=== PATIENT | female | born 1985 | race Caucasian/White ===

== ENCOUNTER → 2017-01-13 10:52 | Outpatient (CLI) | payer MEDICAID | END | disposition home or self-care (01) | LOC: D.LDO 10:52 | DX: O16.3 Unspecified maternal hypertension, third trimester (principal); Z3A.32 32 weeks gestation of pregnancy ==

== ENCOUNTER → 2017-02-05 12:22 | Outpatient (CLI) | payer MEDICAID ==
[2017-02-05 12:46] LABS: BASOPHILS 0.1 % (0-2); EOSINOPHILS 0.6 % (0-7); HEMATOCRIT 37.6 % (36.0-48.0); HEMOGLOBIN 12.3 g/dL (12-16); IMMATURE GRANULOCYTES 0.2 % (0-5); MCHC 32.7 g/dL (31.0-37.0); MCV 85.6 fL (80.0-100.0); MEAN PLATELET VOLUME 10.6 fL (7.4-10.4); MONOCYTES 8.4 % (2-11); NEUTROPHILS 66.7 % (40-80); RBC 4.39 10x6/uL (4.00-5.40); RDW 14.5 % (11.5-14.5); WBC 9.4 10x3/uL (4.8-10.8)
[2017-02-05 12:47] LABS: PLATELET COUNT 199 10x3/uL (130-400)
[2017-02-05 13:03] LABS: ALBUMIN 2.5 g/dL (3.4-5.0); ALKALINE PHOSPHATASE 75 U/L (46-116); ALT (SGPT) 19 U/L (10-68); BILIRUBIN - TOTAL 0.18 mg/dL (0.2-1.3); CALC OSMOLALITY 270 mosm/kg (275-300); CARBON DIOXIDE 25.4 mmol/L (21.0-32.0); CHLORIDE - SERUM 103 mmol/L (98-107); CREATININE - SERUM 0.7 mg/dL (0.6-1.3); GLUCOSE 84 mg/dL (74-106); LDH 129 U/L (81-234); PROTEIN - SERUM 6.6 g/dL (6.4-8.2); SODIUM 137 mmol/L (136-145); UREA NITROGEN 7 mg/dL (7-18); URIC ACID 4.6 mg/dL (2.6-7.2); eGFR NON AFRICAN AMERICAN > 90 mL/min (90-120)
[2017-02-05 13:30] LABS: PROTEIN TRACE mg/dL (NEGATIVE)
[2017-02-06 16:33] LABS: PROTEIN - URINE 7.3 mg/dL (0.0-11.9)
== END | disposition home or self-care (01) ==
LOC: D.LDO 12:22
PROVIDERS: Obstetrics & Gynecology
DX: O10.913 Unspecified pre-existing hypertension complicating pregnancy, third trimester (principal); Z3A.35 35 weeks gestation of pregnancy

== ENCOUNTER → 2017-02-06 17:53 | Outpatient (CLI) | payer MEDICAID | END | disposition home or self-care (01) | LOC: D.LDO 17:53 | DX: O16.3 Unspecified maternal hypertension, third trimester (principal); Z3A.35 35 weeks gestation of pregnancy ==

== ENCOUNTER 2017-02-21 11:57 | Inpatient (IN) | payer MEDICAID ==
[~2017-02-21] VITALS: Ht 170.2 cm; Wt 167.3 kg
[2017-02-21] MEDS ORDERED: PRENATABS RX TA1 TAB PO (12:30)
[2017-02-21 12:49] VITALS: BP 135/86; Ht 170.2 cm; Wt 167.3 kg
[2017-02-21 14:07] LABS: APPEARANCE HAZY (CLEAR); BILIRUBIN NEGATIVE (NEGATIVE); COLOR YELLOW (YELLOW); GLUCOSE NEGATIVE (NEGATIVE); KETONE NEGATIVE (NEGATIVE); LEUKOCYTE ESTERASE NEGATIVE (NEGATIVE); NITRITE NEGATIVE (NEGATIVE); PROTEIN NEGATIVE (NEGATIVE); SPECIFIC GRAVITY 1.015 (1.005-1.020); UROBILINOGEN NORMAL (NORMAL)
[2017-02-21 14:07] LABS: BASOPHILS 0.2 % (0-2); EOSINOPHILS 0.8 % (0-7); HEMATOCRIT 39.4 % (36.0-48.0); HEMOGLOBIN 12.6 g/dL (12-16); IMMATURE GRANULOCYTES 0.2 % (0-5); MCH 27.6 pg (26.0-34.0); MCV 86.4 fL (80.0-100.0); MEAN PLATELET VOLUME 11.8 fL (7.4-10.4); MONOCYTES 6.7 % (2-11); NEUTROPHILS 70.1 % (40-80); PLATELET COUNT 164 10x3/uL (130-400); RBC 4.56 10x6/uL (4.00-5.40); RDW 15.1 % (11.5-14.5); WBC 9.4 10x3/uL (4.8-10.8)
[2017-02-21 14:24] LABS: ALBUMIN 2.4 g/dL (3.4-5.0); ALKALINE PHOSPHATASE 72 U/L (46-116); ALT (SGPT) 16 U/L (10-68); BILIRUBIN - TOTAL 0.24 mg/dL (0.2-1.3); CALC OSMOLALITY 271 mosm/kg (275-300); CALCIUM 8.9 mg/dL (8.5-10.1); CARBON DIOXIDE 23.1 mmol/L (21.0-32.0); CHLORIDE - SERUM 104 mmol/L (98-107); CREATININE - SERUM 0.6 mg/dL (0.6-1.3); POTASSIUM - SERUM 3.8 mmol/L (3.5-5.1); PROTEIN - SERUM 6.9 g/dL (6.4-8.2); SODIUM 138 mmol/L (136-145); UREA NITROGEN 8 mg/dL (7-18); eGFR NON AFRICAN AMERICAN > 90 mL/min (90-120)
[2017-02-21 14:29] LABS: GLUCOSE 68 mg/dL (74-106)
--- NOTE | 2017-02-22 03:38 | NUR ---
PT TRANSFERRED VIA W/C TRANSPORT TO ROOM 1273 FOR CONTINUED POST CARE FOLLOWING OF VIABLE MALE AT 0227. PT ORIENTED TO ROOM, CL, AND PHONE USE, BATHROOM AND USE OF CALL LIGHT IN BATHROOM. VERBALIZED UNDERSTANDING. BED IN LOW POSITION WITH UPPER SIDE RAILS RAISED X2. CL AND PHONE WITHIN REACH. FAMILY AT BEDSIDE. PT REPORT INTERMITTENT ABD CRAMPING, DENIES NEEDS AT THIS TIME. ICE WATER GIVEN.
[2017-02-22 03:48] VITALS: BP 132/74
--- NOTE | 2017-02-22 03:48 | NUR ---
PT BELONGINGS BROUGHT TO ROOM. VSS. PT DENIES NEED FOR PAIN INTERVENTIONS AT THIS TIME. PT IN HIGH FOWLERS POSITION EATING PIZZA THAT FAMILY HAD BROUGHT. WILL CONT TO MONITOR AND ASSIST PRN.
--- NOTE | 2017-02-22 05:10 | NUR ---
ROUNDS MADE. PT RESTING WITH EYES CLOSED. RESPIRATIONS REGULAR, NO S/S OF DISTRESS NOTED. FAMILY AT BEDSIDE RESTING WELL, DENIES NEEDS AT THIS TIME. BED IN LOW POSITION WITH UPPER SIDE RAILS RAISED X2. CL AND PHONE WITHIN PT REACH.
[2017-02-22 06:14] LABS: RAPID PLASMA REAGIN Non Reactive (Non Reactive)
--- NOTE | 2017-02-22 06:43 | NUR ---
SPOUSE TO NURSES STATION, STATES THAT PT IS C/O OF HEADACHE AND INCREASED CRAMPING. PT REQUESTS PAIN MEDICATION AT THIS TIME. STATES THAT SHE HAS HEADACHE AND IS HAVING INCREASED ABD CRAMPING. PAIN 5/10. NORCO AND MOTRIN GIVEN. DENIES ADDITIONAL NEEDS. WILL CONT TO MONITOR AND ASSIST PRN.
--- NOTE | 2017-02-22 07:43 | NUR ---
ASSUMED CARE OF THIS PP PATIENT. SITTING UP IN BED SMILING. VISITORS X 4 INFANT IN NURSERY. DENIES NEEDING ANYTHING EXCEPT BREAKFAST KITCHEN NOTIFIED. SAYS SHE JUST RECEIVED PAIN MEDICATION. SIDE RAILS UP X 2, CALL LIGHT IN REACH. WILL COMPLETE ASSESSMENT AFTER BREAKFAST.
[2017-02-22 07:57] VITALS: BP 122/58
--- NOTE | 2017-02-22 09:55 | NUR ---
REQUESTED PAIN MEDICATION FOR CRAMPING. INSTRUCTED NOT QUIT TIME FOR NORCO BUT WILL GIVE TO HER FIDEL. VERBALIZED UNDERSTANDING. ALSO NEEDED REFILL ON BETADINE YUKI-BOTTLE.
[2017-02-22 10:05] LABS: BASOPHILS 0.1 % (0-2); EOSINOPHILS 0.2 % (0-7); HEMATOCRIT 37.4 % (36.0-48.0); HEMOGLOBIN 11.9 g/dL (12-16); IMMATURE GRANULOCYTES 0.4 % (0-5); LYMPHOCYTES 16.2 % (15-50); MCH 27.7 pg (26.0-34.0); MCHC 31.8 g/dL (31.0-37.0); MEAN PLATELET VOLUME 11.1 fL (7.4-10.4); MONOCYTES 5.7 % (2-11); NEUTROPHILS 77.4 % (40-80); PLATELET COUNT 154 10x3/uL (130-400)
[2017-02-22 10:10] LABS: WBC 12.6 10x3/uL (4.8-10.8)
--- NOTE | 2017-02-22 10:31 | NUR ---
NORCO 5MG GIVEN PO FOR RELIEF OF 4/10 ABDOMINAL CRAMPING. ALSO REQUESTED SALINE LOCK BE REMOVED SECONDARY TO DISCOMFORT. INSTRUCTED THAT IT MAY HAVE TO BE RESTARTED IF INDICATED. VERBALIZED UNDERSTANDING. CBC RESULTS THIS AM WNL. SALINE LOCK DC'D WITH TIP INTACT. NO ADDITIONAL REQUESTS. VISITORS IN ROOM.
--- NOTE | 2017-02-22 11:25 | NUR ---
STANDING UP IN ROOM. SAYS HERE CRAMPING IS ABOUT THE SAME 4/10. EXPLAINED THAT CRAMPING HAS A PURPOSE AND THAT IT MAY NOT GET BETTER THAN 4/10. ENCOURAGED TO KEEP BLADDER EMPTIED VERBALIZED THAT SHE HAS BEEN VOIDING FREQUENTLY. VISITORS AND INFANT IN ROOM.
--- NOTE | 2017-02-22 12:04 | NUR ---
SITTING UP IN BED EATING LUNCH. NO REQUESTS.
--- NOTE | 2017-02-22 14:09 | NUR ---
SITTING UP IN BED. AND VISITORS IN ROOM. DENIES NEEDING ANYTHING. CALL LIGHT IN REACH.
--- NOTE | 2017-02-22 15:47 | NUR ---
SITTING UP IN BED HOLDING . FOB IN ROOM. DENIES NEEDING ANYTHING AT THIS TIME. CALL LIGHT IN REACH. TO CALL IF ANYTHING IS NEEDED.
[2017-02-22 15:52] VITALS: BP 120/68
--- NOTE | 2017-02-22 18:56 | NUR ---
SITTING UP IN ROCKER CHAIR BOTTLE FEEDING INFANT. COMPLETE LINEN CHANGE WAS DONE. ENCOURAGE PT TO SHOWER THIS PM TO PROMOTE REST. PLANS TO TAKE INFANT TO NURSERY AFTER BOTTLE FEEDING SAYING SHE WAS PLANNING TO TRY TO GET SOME SLEEP TONIGHT. TO CALL WHEN READY FOR TO GO TO NURSERY.
--- NOTE | 2017-02-22 19:14 | NUR ---
BEDSIDE REPORT REC'D FROM Sawyer ALSTNO RN. PT REC'D SITTING ON EDGE OF BED VISITING WITH FAMILY MEMBERS. PT REPORTS THAT IS IN NBN FOR ASSESSMENT AND WILL BE BROUGHT BACK TO ROOM SHORTLY. REQUESTS TO CONT TO VISIT WITH VISITORS AND FOR ASSESSMENT TO BE DONE AT A LATER TIME. DENIES NEEDS AT THIS TIME. INSTRUCTED TO USE CL FOR NEEDS, VERBALIZED UNDERSTANDING. BED IN LOW POSITION. CL AND PHONE WITHIN PT REACH. WILL CONT TO MONITOR AND ASSIST PRN.
--- NOTE | 2017-02-22 20:41 | NUR ---
PT CONTINUES TO VISIT WITH VISITORS. INFANT IN ROOM BEING HELD BY VISITOR. PT DENIES NEEDS, WILL CONT TO MONITOR AND ASSESS PRN.
--- NOTE | 2017-02-22 21:20 | NUR ---
ROUNDS MADE. PT BONDING WITH . DENIES NEEDS. INSTRUCTED TO NOTIFY RN VIA CL WHEN SHE WAS READY FOR ASSESSMENT TO BE COMPLETED. DENIES PAIN AT THIS TIME. REQUESTED NIPPLE FOR BOTTLE FROM NBN, GIVEN PER REQUEST. PT STATES THAT WHEN SHE FINISHES FEEDING INFANT SHE WOULD LIKE FOR TO GO TO NBN FOR HER TO SHOWER AND REST. WILL CONT TO MONITOR AND ASSIST PRN.
--- NOTE | 2017-02-22 22:05 | NUR ---
ROUNDS MADE. FOB HOLDING AND BONDING WITH INFANT. PT IN SHOWER AT THIS TIME. SPOUSE DENIES NEEDS. WILL CONT TO MONITOR AND ASSIST PRN. INSTRUCTED TO USE CL FOR NEEDS, VERBALIZED UNDERSTANDING.
[2017-02-22 22:43] VITALS: BP 131/76
--- NOTE | 2017-02-22 22:43 | NUR ---
SHIFT ASSESSMENT COMPLETED. VSS. FUNDUS FIRM, U2 WITH SMALL AMT RUBRA LOCHIA TO PERIPAD, NO CLOTS PRESENT. PAIN 5/10 INTERMITTENT ABD CRAMPING. NORCO GIVEN PER REQUEST. ICE WATER GIVEN. BOWEL SOUNDS PRESENT AND ACTIVE X4. PT STATES THAT SHE IS PASSING FLATUS AND VOIDING WITHOUT DIFFICULTY. INFANT TAKEN TO NBN PER PT REQUEST. PT STATES THAT SHE IS SLEEPY AND WOULD LIKE TO TRY TO REST. BED IN LOW POSITION WITH UPPER SIDE RAILS X2. CL AND PHONE WITHIN REACH. S/O AT BEDSIDE AND SUPPORTIVE OF PT. WILL CONT TO MONITOR AND ASSIST PRN.
--- NOTE | 2017-02-22 23:25 | NUR ---
PAIN REASSESSMENT COMPLETED. PAIN 0/10. PT RESTING WITH EYES CLOSED, RESPIRATIONS REGULAR, NO S/S OF DISTRESS NOTED. S/O REMAINS AT BEDSIDE. BED IN LOW POSITION WITH UPPER SIDE RAILS RAISED X2. CL AND PHONE WITHIN REACH. WILL CONT TO MONITOR AND ASSIST PRN.
--- NOTE | 2017-02-23 00:40 | NUR ---
ROUNDS MADE. PT RESTING WITH EYES CLOSED, RESPIRATIONS REGULAR, NO S/S OF DISTRESS NOTED. BED IN LOW POSITION WITH UPPER SIDE RAILS RAISED X2. CL AND PHONE WITHIN PT REACH. SPOUSE SLEEPING ON COUCH AT THIS TIME. WILL CONT TO MONITOR AND ASSIST PRN.
--- NOTE | 2017-02-23 02:08 | NUR ---
ROUNDS MADE. PATIENT LAYING ON RIGHT SIDE RESTING WITH EYES CLOSED. RESPIRATIONS REGULAR, NO S/S OF DISTRESS NOTED. BED IN LOW POSITION WITH UPPER SIDE RAILS RAISED X2. CL AND PHONE WITHIN REACH. SPOUSE ON COUCH SLEEPING AT BEDSIDE. INFANT REMAINS IN NBN. WILL CONT TO MONITOR AND ASSIST PRN.
--- NOTE | 2017-02-23 04:06 | NUR ---
ROUNDS MADE. PT RESTING QUIETLY ON BACK IN SEMI FOWLERS POSITION. RESPIRATIONS REGULAR, NO S/S OF DISTRESS NOTED. BED REMAINS IN LOW POSITION WITH UPPER SIDE RAILS RAISED X2. CL AND PHONE WITHIN REACH. SPOUSE REMAINS ON COUCH SLEEPING. WILL CONTINUE TO MONITOR AND ASSIST PRN.
--- NOTE | 2017-02-23 06:37 | NUR ---
ROUNDS MADE. PT SITTING UP IN BED HOLDING INFANT. DENIES PAIN/NEEDS AT THIS TIME. BED IN LOW POSITION WITH UPPER SIDE RAILS RAISED X2. CL AND PHONE WITHIN REACH. S/O AT BEDSIDE AND SUPPORTIVE OF PT. WILL CONT TO MONITOR AND ASSIST PRN.
[2017-02-23 07:17] VITALS: BP 128/60
--- NOTE | 2017-02-23 07:17 | NUR ---
ASSUME CARE OF THIS PATIENT. SHIFT ASSESSMENT COMPLETED. DENIES NEEDING ANYTHING AT THIS TIME. MINIMAL CRAMPING /. DISCUSSED RELIEF MEASURES TO DECREASE LE EDEMA AND ENCOURAGED TO AVOID CROSSING LEGS OR SITTING ON LEGS WHILE IN BED TO AVOID POSSIBLE BLOOD CLOT FORMATION. UNCROSSED LEGS AT THIS TIME. REGULAR DIET SERVED. INFANT IN CRIB AT BEDSIDE, FOB SLEEPING ON COUCH. CALL LIGHT IN REACH. TO CALL IF ANYTHING IS NEEDED.
--- NOTE | 2017-02-23 07:51 | NUR ---
DR LOJA VISITED PATIENT AT THIS TIME.
[2017-02-23] MEDS ORDERED: HYDROCODON-ACE1 EAC7 PO (09:42)
[2017-02-23] MEDS ORDERED: IBUPROFEN600 MG PO (09:43)
--- NOTE | 2017-02-23 11:15 | NUR ---
DECLINED TDAP SAYING SHE RECIEVED PRIOR TO DELIVERY. ROOM-IN CONSENTS OBTAINED. DC TEACHING COMPLETED TO INCLUDE ROUTINE PP CARE, PP DEPRESSION, MEDICATION ADMINISTRATION AND INSTRUCTIONS, BOTTLEFEEDING, INFANT CAR SAFETY, S&S INFECTION AND COMMUNITY RESOURCED. NO SPECIFIC QUESTIONS ASKED. SPOUSE HAD PRESCRIPTIONS FILLED SO PT HAS RX IN ROOM FOR NORCO AND IBUPROFEN- SAYS SHE IS ABLE TO TAKE IBUPROFEN WITHOUT ALLERGIC REACTIONS. AWARE WHEN SHE CAN TAKE NEXT DOSE OF MEDICATIONS. INFANT IN ROOM. DC'D TO ROOMING IN STATUS AT THIS TIME. WILL STAY IN CURRENT ROOM.
== END 2017-02-23 11:15 | disposition home or self-care (01) | DRG 775 ==
LOC: D.LD 11:57
PROVIDERS: ADMIT Obstetrics & Gynecology
PROC: 10E0XZZ Delivery of Products of Conception, External Approach (ICD-10-PCS; principal; 2017-02-22)
DX: O41.03X0 Oligohydramnios, third trimester, not applicable or unspecified (principal); Z3A.38 38 weeks gestation of pregnancy; Z37.0 Single live birth; O99.214 Obesity complicating childbirth; E66.01 Morbid (severe) obesity due to excess calories; O16.4 Unspecified maternal hypertension, complicating childbirth; O99.824 Streptococcus B carrier state complicating childbirth; O99.344 Other mental disorders complicating childbirth

== ENCOUNTER 2020-03-06 11:11 | Emergency (ER) | payer MEDICAID ==
[~2020-03-06] VITALS: Ht 170.2 cm; Wt 165.0 kg
[~2020-03-06 11:11] MED LIST: HYDROCODON-ACE1 EAC7 PO; IBUPROFEN600 MG PO; PRENATABS RX TA1 TAB PO
[2020-03-06 11:16] VITALS: Ht 170.2 cm; Wt 165.0 kg
[2020-03-06 11:44] LABS: BASOPHILS 0.2 % (0-2); EOSINOPHILS 1.9 % (0-7); HEMATOCRIT 43.2 % (36.0-48.0); HEMOGLOBIN 13.9 g/dL (12-16); IMMATURE GRANULOCYTES 0.2 % (0-5); LYMPHOCYTES 25.4 % (15-50); MCH 28.1 pg (26.0-34.0); MCHC 32.2 g/dL (31.0-37.0); MCV 87.4 fL (80.0-100.0); MEAN PLATELET VOLUME 9.9 fL (7.4-10.4); MONOCYTES 6.8 % (2-11); NEUTROPHILS 65.5 % (40-80); RBC 4.94 10x6/uL (4.00-5.40); RDW 13.3 % (11.5-14.5); WBC 10.1 10x3/uL (4.8-10.8)
[2020-03-06 11:53] LABS: HCG URINE POSITIVE (NEGATIVE)
[2020-03-06 11:53] LABS: PLATELET COUNT 240 10x3/uL (130-400)
[2020-03-06 11:57] LABS: ANION GAP 12.2 mmol/L (8-16); CARBON DIOXIDE 27.8 mmol/L (21.0-32.0)
[2020-03-06 12:05] LABS: BACTERIA FEW /hpf (NEGATIVE); BILIRUBIN NEGATIVE (NEGATIVE); EPITHELIAL CELLS OCC /hpf (0-5); GLUCOSE NEGATIVE (NEGATIVE); KETONE NEGATIVE (NEGATIVE); NITRITE NEGATIVE (NEGATIVE); RED CELLS - URINE OCC /hpf (0-5); WHITE CELLS - URINE NSEEN /hpf (NEGATIVE)
[2020-03-06 12:25] LABS: ALBUMIN 3.1 g/dL (3.4-5.0); BILIRUBIN - TOTAL 0.18 mg/dL (0.2-1.3); PROTEIN - SERUM 7.4 g/dL (6.4-8.2)
[2020-03-06 14:06] VITALS: BP 143/87
== END 2020-03-06 14:24 | disposition home or self-care (01) ==
LOC: D.ER 11:11
PROVIDERS: Family Medicine
DX: O20.9 Hemorrhage in early pregnancy, unspecified (principal); O16.1 Unspecified maternal hypertension, first trimester; Z3A.01 Less than 8 weeks gestation of pregnancy